=== PATIENT | female | born 1955 | race Caucasian/White ===

== ENCOUNTER 2022-09-13 12:03 | Emergency (ER) | payer MEDICARE, MEDICAID ==
[2022-09-13] MEDS ORDERED: Ketorolac 60 MG/2 ML SDV IM ONE (13:17)
== END 2022-09-13 14:06 | disposition home or self-care (01) ==
LOC: MW.ED 12:03
DX: M25.561 Pain in right knee (principal); M25.562 Pain in left knee; G89.29 Other chronic pain; E11.9 Type 2 diabetes mellitus without complications; E03.9 Hypothyroidism, unspecified; Z88.5 Allergy status to narcotic agent; Z88.8 Allergy status to other drugs, medicaments and biological substances
CPT/HCPCS: 73560; 96372; 99283; J1885

== ENCOUNTER 2023-04-24 17:19 | Emergency (ER) | payer MEDICARE, MEDICAID ==
[2023-04-24 19:07] LABS: APPEARANCE,URINE CLEAR; BILIRUBIN,URINE NEGATIVE (NEGATIVE); COLOR,URINE YELLOW; GLUCOSE,URINE >=1000 mg/dL (NEGATIVE); KETONES,URINE NEGATIVE (NEGATIVE); LEUKOCYTE ESTERASE,URINE NEGATIVE (NEGATIVE); NITRITE,URINE NEGATIVE (NEGATIVE); OCCULT BLOOD,URINE NEGATIVE (NEGATIVE); PH,URINE 5.5 (5.0-8.0); PROTEIN,URINE NEGATIVE (NEGATIVE); UROBILINOGEN,URINE 0.2 EU/dL (<2.0)
[2023-04-24] MEDS ORDERED: Cyclobenzaprine 10 MG Tab PO STA (19:38)
== END 2023-04-24 21:50 | disposition home or self-care (01) ==
LOC: MW.ED 17:19
DX: R10.9 Unspecified abdominal pain (principal); G89.29 Other chronic pain; E78.5 Hyperlipidemia, unspecified; E03.9 Hypothyroidism, unspecified; E11.9 Type 2 diabetes mellitus without complications; E78.00 Pure hypercholesterolemia, unspecified; I10 Essential (primary) hypertension; K21.9 Gastro-esophageal reflux disease without esophagitis; Z88.5 Allergy status to narcotic agent; Z88.8 Allergy status to other drugs, medicaments and biological substances; Z79.899 Other long term (current) drug therapy
CPT/HCPCS: 74176; 81003; 99284; A9270; 99283